=== PATIENT | male | born 1940 | race Caucasian/White ===

== ENCOUNTER 2019-04-14 19:53 | Inpatient (IN) ==
[2019-04-14] MEDS ORDERED: SODIUM CHLORIDE 0.9% 500 ML IV STA (20:37)
[2019-04-14 23:11] LABS: Amorphous Crystals,Urine Occasional /HPF (Few); Apearance,Urine Slightly Hazy (Clear); Bacteria,Urine Occasional /HPF (Few); Bilirubin,Urine Negative (Negative); Blood, Urine Moderate mg/dL (Negative); Glucose,Urine (UA) Negative (Negative); Hyaline Casts,Urine 1 /LPF (0-3); Ketones,Urine Negative (Negative); Mucus,Urine Occasional /LPF (Occasional); Nitrite,Urine Negative (Negative); Protein,Urine 100 MG/DL; RBC,Urine 6 /HPF (0-4); Squamous Epithelial Cell,Urine Occasional /HPF (0-10); Urine Color Yellow (Yellow); Urine Specific Gravity 1.016 (1.001-1.035); Urine Urobilinogen < 2.0 EU/DL (0.2-1.0); WBC,Urine 2 /HPF (0-6)
[2019-04-14 23:58] LABS: Basophils % 0.4 % (0.0-0.8); Eosinophils % 0.1 % (0.00-10.9); Hematocrit 43.9 VOL% (42.0-52.0); Hemoglobin 14.3 GM/DL (14.0-18.0); Immature Granulocytes % 0.6 %; Immature Granulocytes Absolute 0.06 #; Lymphocytes # 0.9 10*3/uL (1.4-4.0); Lymphocytes % 8.8 % (21.2-54.2); Mean Corpuscular HGB Conc 32.6 GM/DL (32-36); Mean Corpuscular Volume 90.1 FL (87-102); Monocytes % 12.7 % (1.7-12.7); Neutrophils % 77.4 % (38.7-73.9); Platelet Count 169 T/CUMM (130-400); Red Blood Count 4.87 MC/CUMM (3.8-5.5); Red Cell Distribution Width 13.9 % (9.3-17.3); White Blood Count 9.8 T/CUMM (4-12)
[2019-04-15 00:05] LABS: INR 0.9; PT Patient Result 9.8 SECS
[2019-04-15 00:42] LABS: Albumin 3.6 G/DL (3.4-5.0); Bilirubin,Total 0.8 MG/DL (0.2-1.0); Calcium 9.1 MG/DL (8.5-10.1); Osmolality,Calculated 273.2 MOS/KG (273-304); Total Protein 7.9 G/DL (6.4-8.3)
[2019-04-15] MEDS ORDERED: DEXTROSE 50% 25 GM/50 ML VIAL IV PRN (02:41)
[2019-04-15] MEDS ORDERED: MORPHINE 4 MG/1 ML VIAL IV PRN (02:41)
[2019-04-15] MEDS ORDERED: ONDANSETRON 4 MG/2 ML VIAL IV PRN (02:41)
[2019-04-15] MEDS ORDERED: GLUCAGON 1 MG VIAL IM PRN (02:41)
[2019-04-15] MEDS: SODIUM CHLORIDE 0.9% 1,000 ML IV SCH ×2 (03:14→21:40)
[2019-04-15 04:52] LABS: Basophils % 0.4 % (0.0-0.8); Hematocrit 39.3 VOL% (42.0-52.0); Hemoglobin 12.8 GM/DL (14.0-18.0); Immature Granulocytes % 0.4 %; Immature Granulocytes Absolute 0.03 #; Lymphocytes # 0.7 10*3/uL (1.4-4.0); Lymphocytes % 8.7 % (21.2-54.2); Mean Corpuscular HGB Conc 32.6 GM/DL (32-36); Mean Corpuscular Volume 88.9 FL (87-102); Mean Platelet Volume 10.3 FL (9.6-12.0); Monocytes % 14.4 % (1.7-12.7); Neutrophils % 76.1 % (38.7-73.9); Platelet Count 156 T/CUMM (130-400); Red Blood Count 4.42 MC/CUMM (3.8-5.5); Red Cell Distribution Width 13.7 % (9.3-17.3); White Blood Count 7.7 T/CUMM (4-12)
[2019-04-15 05:25] LABS: Albumin 3.1 G/DL (3.4-5.0); Calcium 8.5 MG/DL (8.5-10.1); Osmolality,Calculated 272.2 MOS/KG (273-304); Risk Ratio 2.97; VLDL CHOLESTEROL 26.8 MG/DL
[2019-04-15 05:30] LABS: Troponin I < 0.015 NG/ML (0.00-0.045)
[2019-04-15 05:35] LABS: Free T4 (Free Thyroxine) 1.12 NG/DL (0.76-1.46); Thyroid Stimulating Hormone 2.41 uIU/ml (0.358-3.74)
[2019-04-15] MEDS: INSULIN REGULAR 100 UNIT/ML SUBCUT SCH ×3 (06:36→18:58)
[2019-04-15] MEDS: LEVOTHYROXINE 25 MCG TABLET PO SCH (06:37)
[2019-04-15] MEDS ORDERED: MAGNESIUM SULF RIDER 2 GM in PREMIX 1 EACH IV ONE (08:23)
[2019-04-15] MEDS: metFORMIN 500 MG TABLET PO SCH ×2 (08:43→21:22)
[2019-04-15] MEDS: DOCUSATE SODIUM 100 MG CAPSULE PO SCH ×2 (08:43→21:22)
[2019-04-15] MEDS: PIOGLITAZONE 45 MG TABLET PO SCH (08:44)
[2019-04-15] MEDS: ENOXAPARIN 40 MG/0.4 ML SYRINGE SUBCUT SCH (08:44)
[2019-04-15] MEDS: PANTOPRAZOLE 40 MG TABLET PO SCH (08:44)
[2019-04-15] MEDS: LISINOPRIL/HCTZ 20-25 MG TABLET PO SCH (08:44)
[2019-04-15] MEDS: POTASSIUM CHLORIDE 20 MEQ TABLET PO PRN ×4 (08:47→15:57)
[2019-04-16] MEDS: INSULIN REGULAR 100 UNIT/ML SUBCUT SCH ×4 (01:37→17:39)
[2019-04-16] MEDS: LEVOTHYROXINE 25 MCG TABLET PO SCH (06:26)
[2019-04-16 08:30] LABS: Amorphous Crystals,Urine Occasional /HPF (Few); Apearance,Urine CLEAR (Clear); Bacteria,Urine Occasional /HPF (Few); Bilirubin,Urine Negative (Negative); Blood, Urine Moderate mg/dL (Negative); Glucose,Urine (UA) Negative (Negative); Hyaline Casts,Urine 1 /LPF (0-3); Ketones,Urine Negative (Negative); Mucus,Urine Occasional /LPF (Occasional); Nitrite,Urine Negative (Negative); Protein,Urine 30 MG/DL; RBC,Urine 1 /HPF (0-4); Squamous Epithelial Cell,Urine Occasional /HPF (0-10); Urine Color Yellow (Yellow); Urine Specific Gravity 1.015 (1.001-1.035); Urine Urobilinogen < 2.0 EU/DL (0.2-1.0); WBC,Urine 1 /HPF (0-6)
[2019-04-16] MEDS: DOCUSATE SODIUM 100 MG CAPSULE PO SCH ×2 (08:49→21:42)
[2019-04-16] MEDS: PANTOPRAZOLE 40 MG TABLET PO SCH (08:49)
[2019-04-16] MEDS: LISINOPRIL/HCTZ 20-25 MG TABLET PO SCH (08:49)
[2019-04-16] MEDS: metFORMIN 500 MG TABLET PO SCH ×2 (08:49→21:41)
[2019-04-16] MEDS: ENOXAPARIN 40 MG/0.4 ML SYRINGE SUBCUT SCH (08:50)
[2019-04-16] MEDS: PIOGLITAZONE 45 MG TABLET PO SCH (08:50)
[2019-04-16] MEDS: SODIUM CHLORIDE 0.9% 1,000 ML IV SCH (12:23)
[2019-04-16 17:46] LABS: Free Thyroxine Index 6.3 mcg/dL (4.8 - 12.7)
[2019-04-16] MEDS: ACETAMINOPHEN 325 MG TABLET PO PRN (21:41)
[2019-04-17] MEDS: INSULIN REGULAR 100 UNIT/ML SUBCUT SCH ×4 (01:38→18:28)
[2019-04-17 05:11] LABS: Basophils # 0.1 10*3/uL (0.0-0.2); Basophils % 0.6 % (0.0-0.8); Eosinophils # 0.1 10*3/uL (0.0-0.87); Eosinophils % 0.6 % (0.00-10.9); Hematocrit 41.1 VOL% (42.0-52.0); Hemoglobin 13.2 GM/DL (14.0-18.0); Immature Granulocytes % 1.4 %; Immature Granulocytes Absolute 0.12 #; Lymphocytes # 1.2 10*3/uL (1.4-4.0); Mean Corpuscular HGB Conc 32.1 GM/DL (32-36); Mean Corpuscular Volume 90.1 FL (87-102); Mean Platelet Volume 10.5 FL (9.6-12.0); Monocytes % 17.1 % (1.7-12.7); Neutrophils % 66.3 % (38.7-73.9); Platelet Count 188 T/CUMM (130-400); Red Blood Count 4.56 MC/CUMM (3.8-5.5); White Blood Count 8.7 T/CUMM (4-12)
[2019-04-17 05:55] LABS: Band Neutrophils 10 % (0-10); Eosinophils 2 % (0-10); Lymphocytes 11 % (20-55); Segmented Neutrophils 60 % (50-85); Total Cells Counted 100
[2019-04-17] MEDS: SODIUM CHLORIDE 0.9% 1,000 ML IV SCH ×2 (05:55→22:27)
[2019-04-17 05:57] LABS: Hypochromasia 1+; Microcytosis Slight; Platelet Estimate Adequate
[2019-04-17] MEDS: LEVOTHYROXINE 25 MCG TABLET PO SCH (06:35)
[2019-04-17] MEDS: DOCUSATE SODIUM 100 MG CAPSULE PO SCH ×2 (09:26→21:05)
[2019-04-17] MEDS: metFORMIN 500 MG TABLET PO SCH ×2 (09:27→21:04)
[2019-04-17] MEDS: PIOGLITAZONE 45 MG TABLET PO SCH (09:27)
[2019-04-17] MEDS: PANTOPRAZOLE 40 MG TABLET PO SCH (09:27)
[2019-04-17] MEDS: LISINOPRIL/HCTZ 20-25 MG TABLET PO SCH (09:27)
[2019-04-17] MEDS: ENOXAPARIN 40 MG/0.4 ML SYRINGE SUBCUT SCH (09:27)
[2019-04-17] MEDS: ACETAMINOPHEN 325 MG TABLET PO PRN (12:25)
[2019-04-18] MEDS: INSULIN REGULAR 100 UNIT/ML SUBCUT SCH ×4 (01:35→18:59)
[2019-04-18] MEDS: LEVOTHYROXINE 25 MCG TABLET PO SCH (05:46)
[2019-04-18] MEDS: PANTOPRAZOLE 40 MG TABLET PO SCH (08:24)
[2019-04-18] MEDS: metFORMIN 500 MG TABLET PO SCH ×2 (08:24→20:29)
[2019-04-18] MEDS: PIOGLITAZONE 45 MG TABLET PO SCH (08:24)
[2019-04-18] MEDS: LISINOPRIL/HCTZ 20-25 MG TABLET PO SCH (08:24)
[2019-04-18] MEDS: ENOXAPARIN 40 MG/0.4 ML SYRINGE SUBCUT SCH (08:24)
[2019-04-18] MEDS: DOCUSATE SODIUM 100 MG CAPSULE PO SCH ×2 (08:25→20:29)
[2019-04-18] MEDS: VANCOMYCIN 50 MG/ML 60 ML/BOTTLE PO SCH ×3 (11:32→23:58)
[2019-04-18] MEDS: SODIUM CHLORIDE 0.9% 1,000 ML IV SCH (15:03)
[2019-04-19] MEDS: INSULIN REGULAR 100 UNIT/ML SUBCUT SCH ×4 (00:41→18:36)
[2019-04-19 05:10] LABS: Basophils # 0.1 10*3/uL (0.0-0.2); Basophils % 0.8 % (0.0-0.8); Eosinophils # 0.2 10*3/uL (0.0-0.87); Eosinophils % 1.9 % (0.00-10.9); Hematocrit 37.8 VOL% (42.0-52.0); Hemoglobin 12.4 GM/DL (14.0-18.0); Immature Granulocytes % 4.4 %; Immature Granulocytes Absolute 0.36 #; Lymphocytes % 11.9 % (21.2-54.2); Mean Corpuscular HGB Conc 32.8 GM/DL (32-36); Mean Corpuscular Volume 88.5 FL (87-102); Monocytes % 14.3 % (1.7-12.7); Neutrophils % 66.7 % (38.7-73.9); Platelet Count 215 T/CUMM (130-400); Red Blood Count 4.27 MC/CUMM (3.8-5.5); Red Cell Distribution Width 13.7 % (9.3-17.3); White Blood Count 8.3 T/CUMM (4-12)
[2019-04-19 05:19] LABS: Albumin 2.6 G/DL (3.4-5.0); Bilirubin,Total 0.7 MG/DL (0.2-1.0); Calcium 8.9 MG/DL (8.5-10.1); Osmolality,Calculated 278.8 MOS/KG (273-304); Total Protein 7.1 G/DL (6.4-8.3)
[2019-04-19] MEDS: LEVOTHYROXINE 25 MCG TABLET PO SCH (05:37)
[2019-04-19] MEDS: VANCOMYCIN 50 MG/ML 60 ML/BOTTLE PO SCH ×3 (05:37→17:29)
[2019-04-19] MEDS ORDERED: DEXTROSE 10% 250 ML IV PRN (07:43)
[2019-04-19] MEDS: metFORMIN 500 MG TABLET PO SCH (08:39)
[2019-04-19] MEDS: ENOXAPARIN 40 MG/0.4 ML SYRINGE SUBCUT SCH (08:39)
[2019-04-19] MEDS: PANTOPRAZOLE 40 MG TABLET PO SCH (08:39)
[2019-04-19] MEDS: POTASSIUM CHLORIDE 20 MEQ TABLET PO PRN ×2 (08:40→11:20)
[2019-04-19] MEDS: PIOGLITAZONE 45 MG TABLET PO SCH (08:40)
[2019-04-19] MEDS: LISINOPRIL/HCTZ 20-25 MG TABLET PO SCH (08:40)
[2019-04-19] MEDS ORDERED: MAGNESIUM CHLORIDE 64 MG TABLET PO SCH ×2 (09:00→21:00)
[2019-04-19] MEDS: DOCUSATE SODIUM 100 MG CAPSULE PO SCH (09:33)
[2019-04-19] MEDS: SODIUM CHLORIDE 0.9% 1,000 ML IV SCH (09:38)
[2019-04-19 15:35] VITALS: BP 144/75
[2019-04-19] MEDS ORDERED: POTASSIUM CHLORIDE 10 MEQ TABLET PO SCH (21:00)
== END 2019-04-19 19:26 | disposition home or self-care (01) | DRG 373 ==
LOC: EDUNIT# → EDBD → N.ED 19:53 → N.EDINP 04-15 01:05 → N.2E 04-15 01:43
PROVIDERS: ADMIT Family Medicine; ATTEND Family Medicine